=== PATIENT | male | born 1975 | race Caucasian/White ===

== ENCOUNTER 2024-10-02 06:34 | Day surgery (SDC) | payer BC, SELFPAY | END 2024-10-02 13:13 | disposition home or self-care (01) | LOC: GI 06:34 | PROVIDERS: ATTENDING PHYSICIAN Internal Medicine | DX: Z12.11 Encounter for screening for malignant neoplasm of colon (principal); K57.30 Diverticulosis of large intestine without perforation or abscess without bleeding; K64.8 Other hemorrhoids; K63.5 Polyp of colon | CPT/HCPCS: 45380; 88305 ==

== ENCOUNTER 2025-02-16 14:15 | Emergency (ER) | payer BC, SELFPAY ==
[2025-02-16 14:20] VITALS: BP 169/107
[2025-02-16 14:40] LABS: Hematocrit 48.7 % (39.0-52.0); Hemoglobin 16.9 g/dL (13.0-18.0); Mean Corp Hgb Conc. 34.7 g/dL (33.0-37.0); Mean Corpuscular Volume 87.4 fL (80.0-94.0); Nucleated Red Blood Cells % 0 % (-); Platelet Count 218 10^3/uL (130-400); Red Cell Dist. Width 12.7 % (11.5-14.5)
[2025-02-16 15:03] LABS: ALT (SGPT) 23 U/L (0-50); AST (SGOT) 22 U/L (17-59); Albumin 4.9 g/dl (3.5-5.0); Alkaline Phosphatase 51 U/L (38-126); Blood Urea Nitrogen 16 mg/dl (9-20); Calcium 9.3 mg/dl (8.4-10.2); Carbon Dioxide 30 mmol/L (22-30); Chloride 100 mmol/L (98-107); Glucose 107 mg/dl (70-99); Lipase 123 U/L (23-300); Sodium 137 mmol/L (135-145); Total Protein 7.6 g/dl (6.3-8.2); eGFR 56.37
[2025-02-16 15:17] LABS: Potassium 4.7 mmol/L (3.5-5.1)
--- NOTE | 2025-02-16 18:04 | ED.GENMED ---
History of Present Illness
General
Chief Complaint: Abdominal Pain
Source: patient
Exam Limitations: none
Time Seen by Provider: 02/16/25 17:40
Nursing documentation reviewed up to this point in time: agreed with
History of Present Illness
History of Present Illness:
Patient to ED with report of RLQ abd pain. States he developed periumbilical pain on Sunday. Pain has since migrated to RLQ. Denies fever/chills, n/v/d. Sent to ED by PCP for eval
Past History
Past History
ED Past Medical History: HTN
Review of Systems
Review of Systems
Allergies reviewed?: Yes
All Other Systems: ROS reviewed and negative except as documented in HPI and ROS
Constitutional: Reports no symptoms
EENT: Reports no symptoms
Respiratory: Reports no symptoms
Cardiac: Reports no symptoms
ABD/GI: Reports abdominal pain (RLQ abd pain)
: Reports no symptoms
Musculoskeletal: Reports no symptoms
Skin: Reports no symptoms
Neurological: Reports no symptoms
Psychiatric: Reports no symptoms
Phy Exam
General Physical Exam
General Presentation: well appearing
General age: appears stated age
General Skin: warm and dry
General Habitus: normal
General Mental: alert
Cardiovascular Exam
Cardiovascular Exam: regular rate/rhythm and no edema
Pulmonary Exam
Pulmonary Exam: no respiratory distress and chest non tender
Gastrointestinal Exam
Gastrointestinal Exam: normal bowel sounds, soft, no organomegaly, no pulsatile mass, non distended and no cva tenderness
Palpation: left upper quadrant: No tenderness, left lower quadrant: Mild tenderness, right upper quadrant: Mild tenderness and right lower quadrant: Moderate tenderness
Musculoskeletal Exam
Musculoskeletal Exam: full ROM and neuro vasc intact
Skin Exam
Skin Exam: normal color, warm/dry and no rash
Psychiatric Exam
Psychiatric Exam: normal mood/affect
Course
Orders/Labs/Results
Orders:
Orders
02/16/25 14:25
Complete Blood Count/With Diff Urgent
Comprehensive Metabolic Panel Urgent
Lipase Urgent
02/16/25 17:57
0.9% Sodium Chloride 1000 ml [Nss] 1,000 ml IV BOLUS
Iohexol [Omnipaque] See Protocol PO NOW STA
02/16/25 17:58
CT Abd/pel W Iv And Oral Contr Urgent
Comment:
Reason For Exam: RLQ pain
02/16/25 18:01
US Abdomen Complete/Upper Urgent
Comment:
Reason For Exam: right sided abd. pain. elevated Tbili, creat.
02/16/25 20:54
Urinalysis Reflex To Culture Urgent
Date Specimen was Collected: 02/16/25
Time Specimen was Collected: 20:52
Urine Microscopic Reflex Cult Urgent
02/16/25 21:28
Amoxicillin 875 mg/Clav 125 mg [Augmentin 875 mg/125 mg] 1 tablet PO NOW STA
Abnormal Lab Results
02/16/25 02/16/25
14:25 20:54
Absolute Neuts (auto) 7.8 H 10^3/uL
(1.4-6.5)
Absolute Monos (auto) 0.9 H 10^3/uL
(0.1-0.6)
Lymphocytes % 15.4 L %
(20.5-51.1)
Creatinine 1.5 H mg/dL
(0.7-1.3)
Glucose 107 H mg/dl
(70-99)
Total Bilirubin 2.9 H mg/dl
(0.2-1.3)
Urine Ketones 2+ A
(Negative)
Urine Albumin (Reflex) 1+ A
(Neg - Trace)
02/16/25 14:25
02/16/25 14:25
Vital Signs
Initial and Last Documented VS:
Initial Vital Signs
Temp Pulse Resp BP Pulse Ox
98.4 F 85 18 169/107 98
02/16/25 14:20 02/16/25 14:20 02/16/25 14:20 02/16/25 14:20 02/16/25 14:20
Last Documented Vital Signs
Temp Pulse Resp BP Pulse Ox
98.4 F 85 18 142/88 96
02/16/25 14:20 02/16/25 14:20 02/16/25 14:20 02/16/25 20:00 02/16/25 20:30
*Radiology
Radiology exam reviewed: radiology read reviewed
*Pulse Oximetry
SaO2: 98
Oxygen Mode of Delivery: Room air
Patient hypoxic: no
*Critical Care Note
Total Time (30-74mins, 75-104mins- exclusive of procedures): Not Applicable
Update Note
Update Note:
Patient to ED with right lower abd. pain x3 days, VSS, he remains afebrile. WBC normal. Tbili 2.9, LFT's normal. US completed. Increased echogenicity in portal triads noted. CT abd/pelvis completed. Confirms diverticulitis. Multiple low
denity hepatic lesion likely cysts. Patient to have labs repeated in 1-[address] on augmentin for diverticuliltis and recommend follow up with GI. He was given instructions on s/s to return to ED and he is agreeable to plan
ED Attending Note
-
Portions of this chart may have been created with voice recognition software.� Occasional wrong word or��sound alike� substitutions may have occurred due to the inherent limitations of voice recognition software.
Discharge Plan
Departure
Patient Disposition: Home (Routine Discharge)
Date of Disposition: 02/16/25
Time of Disposition: 21:30
Patient with high blood pressure during this ER visit?: No
Condition: Good
Covid-19: Not Applicable
Discharge Problem:
Diverticulitis
Instructions: Diverticulitis (DC)
Prescriptions:
New
amoxicillin-pot clavulanate 875-125 mg tablet
1 tab PO BID Qty: 20 0RF
Referrals:
Jackie Fernandes MD [Active, Gastroenterology] - Call in 1-3 days for appt
Reggie Muniz MD [Family Provider, Internal Medicine]
Activity Restrictions/Additional Instructions:
Return to the emergency department immediately for any changes in/worsening of your symptoms.
Interventions
Interventions:
*Risk Screen - Suicide Last Done: 02/16/25 19:59
*General Assessment Last Done: 02/16/25 14:20
*Neglect/Abuse Screening Last Done: 02/16/25 19:00
*ED- Fall Risk Assessment Last Done: 02/16/25 18:34
*ED COVID-19 Vaccine History Last Done: 02/16/25 18:34
*ED Influenza Vaccine History Last Done: 02/16/25 18:34
NO-Bmetdj-Howtfhczor Assessment Last Done: 02/16/25 18:34
Discharge Date and Time
Print Language: MEXICAN
[2025-02-16 18:34] VITALS: BMI 33.5
[2025-02-16 18:36] VITALS: BP 140/79
[2025-02-16] MEDS: OMNIPAQUE 50 ML PO (18:50)
[2025-02-16] MEDS: NSS 1000 IV (18:51)
[2025-02-16 19:00] VITALS: BP 135/82
[2025-02-16 20:00] VITALS: BP 142/88
[2025-02-16 21:02] LABS: Urine Character Clear (Clear)
[2025-02-16 21:26] LABS: Urine Red Blood Cell 0-2 /HPF (0-2); Urine White Cell 0-2 /HPF (0-5)
[2025-02-16] MEDS: AUGMENTIN 875 MG/125 MG 1 TABLET PO (21:40)
== END 2025-02-16 21:51 | disposition home or self-care (01) ==
LOC: EMR 14:15
PROVIDERS: Nurse Practitioner; EMERGENCY PHYSICIAN Student in an Organized Health Care Education/Training Program; FAMILY PHYSICIAN Internal Medicine
DX: K57.32 Diverticulitis of large intestine without perforation or abscess without bleeding (principal); I10 Essential (primary) hypertension
CPT/HCPCS: 99284; 96360; 74177; 76700; 80053; 81003; 81015; 83690; 85025; Q9967